=== PATIENT | female | born 1975 | race Hispanic/Latino ===

== ENCOUNTER 2016-04-07 09:19 | Emergency (ER) | payer OTHER ==
[~2016-04-07] VITALS: Ht 154.9 cm; Wt 67.3 kg
[~2016-04-07 09:19] MED LIST: CALCIUM CARB1 TABLET PO; Motrin PO; NOHOMEMEDS; PREFERA-OB P1 TABLET PO; Percocet 5/325,Endoc PO; TYLENOL REGULA325 MG PO; ULTRAM50 MG PO
[2016-04-07] MEDS ORDERED: PRISTIQ50 MG PO (09:37)
[2016-04-07 09:50] LABS: EOSINOPHIL (%) 2.5 % (0-5); EOSINOPHIL COUNT 0.1 K/uL (0-0.3); HEMATOCRIT 34.5 % (36.0-46.0); IMMATURE GRANULOCYTE (%) 0.7 % (0.0-0.7); IMMATURE GRANULOCYTE COUNT 0.3 K/uL; LYMPHOCYTE COUNT 1.4 K/uL (1.0-2.8); MCH 28.4 PG (29.0-34.0); MCHC 32.5 G/DL (30.0-36.0); MCV 87.6 FL (83-99); MEAN PLAT.VOLUME 9.2 uM^3 (9.5-12.4); MONOCYTE COUNT 0.3 K/uL (0-0.8); NEUTROPHIL (%) 57.8 % (45-76); NEUTROPHIL COUNT 2.5 K/uL (1.8-6.4); PLATELET COUNT 324 K/uL (156-360); RBC DIS.WIDTH-SD 40.5 % (39-53); RED BLOOD COUNT 3.94 M/uL (3.80-5.20); WHITE BLOOD COUNT 4.4 K/uL (4.1-10.2)
[2016-04-07 10:00] LABS: CHLORIDE 110 mEq/L (99-109); POTASSIUM 3.9 mEq/L (3.7-5.4); SODIUM 142 mEq/L (136-147)
[2016-04-07 10:02] LABS: GLUCOSE 110 mg/dL (70-99)
[2016-04-07 10:03] LABS: ANION GAP 8 MEQ/L (2-14)
[2016-04-07 10:04] LABS: TOTAL BILIRUBIN 0.3 mg/dL (0.0-1.0)
[2016-04-07 10:06] LABS: ALKALINE PHOSPHATASE 74 IU/L (3-129); GFR ESTIMATE (CALCULATED) > 59 mL/min/
[2016-04-07 10:07] LABS: UREA NITROGEN (BUN) 13 mg/dL (9-23)
[2016-04-07 10:09] LABS: LIPASE 26 U/L (1.0-51.0)
[2016-04-07 10:10] LABS: TROP-I INTERPRETATION NEGATIVE; TROPONIN-I < 0.01 ng/mL (0.0-0.30)
[2016-04-07 10:16] LABS: QUANTITATIVE HCG < 4.0 MIU/ML
[2016-04-07] MEDS ORDERED: ULTRAM50 MG PO (11:37)
[2016-04-07] MEDS ORDERED: ZOFRAN4 MG PO (11:37)
[2016-04-07 12:08] LABS: ADD MIUA? YES; BILIRUBIN NEGATIVE; BLOOD MODERATE; COLOR STRAW ((YELLOW)); GLUCOSE (STRIP) NEGATIVE; KETONES NEGATIVE; LEUKOCYTES NEGATIVE; NITRITE NEGATIVE; PROTEIN (STRIP) NEGATIVE; SPECIFIC GRAVITY 1.008 (1.000-1.030); UROBILINOGEN 0.2 MG/DL (0.2-1.0)
[2016-04-07 12:09] LABS: TROP-I INTERPRETATION NEGATIVE; TROPONIN-I < 0.01 ng/mL (0.0-0.30)
[2016-04-07 12:27] LABS: BACTERIA RARE /HPF; EPITHELIAL CELLS RARE /HPF; MUCUS TRACE /LPF; RED BLOOD CELLS 0-5 /HPF (0-5); UCUL ADDED? NO; WHITE BLOOD CELLS 0-5 /HPF (0-5)
[2016-04-07 13:23] VITALS: BP 110/72
== END 2016-04-07 13:28 | disposition home or self-care (01) ==
LOC: EME 09:19
PROVIDERS: Emergency Medicine
DX: K80.20 Calculus of gallbladder without cholecystitis without obstruction (principal)
CPT/HCPCS: 76705; 80053; 81003; 83690; 84484; 84702; 85025; 93005; 99281; 99285; J2405; J7030

== ENCOUNTER 2016-05-15 10:33 | Day surgery (SDC) | payer OTHER ==
[~2016-05-15] VITALS: Ht 154.9 cm; Wt 64.0 kg
[~2016-05-15 10:33] MED LIST changes: +PRISTIQ50 MG PO; +ZOFRAN4 MG PO
[2016-05-15 11:25] VITALS: BP 132/85
[2016-05-15] MEDS ORDERED: NORCO 5/3251 TABLET PO (14:24)
[2016-05-15 15:47] VITALS: BP 115/68
[2016-05-15 17:40] VITALS: BP 127/70
[2016-05-20 10:39] LABS: INTERNAL CONTROL VALID? YES
== END 2016-05-15 17:50 | disposition home or self-care (01) ==
LOC: SDC 10:33
PROVIDERS: Surgery
PROC: 0FT44ZZ Resection of Gallbladder, Percutaneous Endoscopic Approach (ICD-10-PCS; principal; 2016-05-15)
DX: K80.10 Calculus of gallbladder with chronic cholecystitis without obstruction (principal); K80.50 Calculus of bile duct without cholangitis or cholecystitis without obstruction; Z86.19 Personal history of other infectious and parasitic diseases; Z86.32 Personal history of gestational diabetes; F32.9 Major depressive disorder, single episode, unspecified; Z80.1 Family history of malignant neoplasm of trachea, bronchus and lung; Z84.1 Family history of disorders of kidney and ureter; Z83.3 Family history of diabetes mellitus
CPT/HCPCS: 84703; 88304; C1769; J0690; J1100; J1170; J1885; J2250; J2405; J2710; J3010